=== PATIENT | female | born 1935 | race Caucasian/White ===

== ENCOUNTER 2016-11-16 21:13 | Inpatient (IN) ==
[2016-11-16] MEDS ORDERED: ASPIRIN PO STA (21:28)
--- NOTE | 2016-11-16 21:49 | ED EKG INTERP ---
This chart was entered by Joon Ellis Scribe, acting as scribe for Mario Garcia MD. EKG Interpretation - EKG Time of EKG reading by physician:: 21:23 EKG Read and Signed by:: Mario Garcia EKG Interpretation (*Must complete 3 of following elements*): Abnormal ( Possible left atrial enlargement; Nonspecific ST and T wave abnormality) Rate: 53 Rhythm: Sinus bradycardia This chart was documented by the indicated scribe, (Joon Ellis Scribe) and accurately reflects the services I performed and decisions made by meParesh Kevin F., MD, as attested by the provider's signature.
[2016-11-16] MEDS ORDERED: ZOFRAN IV ONE ×2 (21:50→22:39)
[2016-11-16] MEDS ORDERED: MORPHINE IV ONE (21:50)
[2016-11-16 22:23] LABS: MANUAL DIFF NEEDED? NO
[2016-11-16 22:27] LABS: BASO% 0.1 % (0.0-0.8); EOS# 0.12 X1000 (0.0-0.7); EOS% 0.9 % (0.0-10.0); HEMATOCRIT 37.1 % (37.0-47.0); HEMOGLOBIN 12.9 g/dL (12.0-16.0); IMM GRAN# 0.04 X1000 (0.0-0.04); IMM GRAN% 0.3 % (0.0-0.5); LYMPH# 2.74 X1000 (1.2-3.4); MCH 32.3 PG (27-31); MCHC 34.8 g/dL (33-37); MCV 92.8 FL (81-99); MONO# 0.68 X1000 (0.11-0.59); MPV 8.8 FL (7.4-10.4); NEUT% 73.7 % (42.2-75.2); PLT 397 X1000 (130-400)
[2016-11-16 22:34] LABS: INR 0.99; PROTIME 10.4 Seconds (9.2-11.7); PTT 24.6 Seconds (22.0-36.0)
[2016-11-16] MEDS ORDERED: DILAUDID IV ONE (22:38)
[2016-11-16 22:44] LABS: ALBUMIN 4.2 g/dL (3.5-5.0); CALCIUM 9.3 mg/dL (8.8-10.2); MAGNESIUM 1.7 mg/dL (1.5-2.7); POTASSIUM 3.8 mmol/L (3.5-5.1); TOTAL BILIRUBIN 0.94 mg/dL (0.20-1.00); TOTAL PROTEIN 7.2 g/dL (6.3-8.3)
--- NOTE | 2016-11-16 23:52 | PROVIDER DOCUMENTATION ---
This chart was entered by Joon Ellis Scribe, acting as scribe for Mario Garcia MD. HPI-Abdominal Pain/GI Problem - General Chief Complaint: Chest Pain Stated Complaint: CP Time Seen by Provider: 11/16/16 21:28 Source: patient Allergies/Adverse Reactions: Patient Allergies Allergy/AdvReac Type Severity Reaction Status Date / Time Sulfa (Sulfonamide Allergy HIVES Verified 11/16/16 21:44 Antibiotics) - History of Present Illness-ABD Nature of Presenting Problems: Pt is a 81 yof who presents to ER with CC of sharp epigastric pain that radiates straight through to her back that started today. Pt reports diaphoresis and nausea without vomiting when pain started, but denies any SOB/ diarrhea/constipation. Pt states that her pain is worse when lying flat and improved when bending over. Abdominal Pain Onset Location: reports: epigastric Pain Radiation: reports: back Quality of Pain: reports: sharp Severity in ED: reports: moderate Onset/Duration: reports: this afternoon Timing: reports: still present Associated Symptoms: reports: back/neck pain, diaphoresis, nausea. denies: anxiety, arm pain, chest pain, constipation, diarrhea, fever/chills, loss of appetite, muscle aches, shortness of breath, vomiting Last BM: unsure Dark Stools Present?: reports: none noticed Rectal Bleeding: reports: none Rectal Pain: reports: none Emesis Description: reports: none Review of Systems - Adult - REVIEW OF SYSTEMS - ADULT Constitutional: denies: chills, fever, fatique, night sweats, weight gain, weight loss Eyes: reports: no symptoms reported Ears, Nose, Mouth & Throat: reports: no symptoms reported Cardiovascular: denies: chest pain, irregular heart rate, palpitations, poor circulation, syncope Respiratory: denies: cough, dyspnea on exertion, shortness of breath, wheezing Gastrointestinal: reports: abdominal pain (epigastric), nausea. denies: hematemesis, constipation, diarrhea, difficulty swallowing, frequent heartburn, poor appetite, rectal bleeding, vomiting Genitourinary: reports: no symptoms reported Musculoskeletal: reports: no symptoms reported Integumentary: reports: other (diaphoresis). denies: hives, hair loss, itching , skin sores/ulcer, skin thickening Neurological: reports: no symptoms reported Psychiatric: reports: no symptoms reported Endocrine: reports: no symptoms reported Hematologic/Lymphatic: reports: no symptoms reported Allergic/Immunologic: reports: no symptoms reported All Other Systems: Reviewed and Negative Past History - Adult - PAST MEDICAL HISTORY-ADULT Review of Records: reports: Nursing Assessment Review, Medications Reviewed - IMMUNIZATION STATUS Childhood Immunizations: See Nurse Assessment Flu Vaccine: See Nurse Assessment Physical Exam-General - PHYSICAL EXAM-ADULT Initial Vital Signs Reviewed: Yes - CONSTITUTIONAL General Appearance: appears well, alert, mild distress - RESPIRATORY Respiratory: chest non-tender, lungs clear, normal breath sounds, no pleuratic chest pain, no respiratory distress, no accessory muscle use. negative: respiratory distress, decreased breath sounds, accessory muscle use, wheezing - CARDIOVASCULAR Cardiovascular: normal peripheral pulses, regular rate, rhythm. negative: bradycardia, tachycardia, irregularly irregular - GASTROINTESTINAL (ABDOMEN) Abdominal Exam: normal bowel sounds, soft, no organomegaly, no pulsatile mass, tenderness (tenderness to epigastric/RUQ on palpation), Pedraza's sign (Positive) . negative: non tender - MUSCULOSKELETAL Back Exam: no CVA tenderness, no vertebral tenderness. negative: CVA tenderness , vertebral tenderness - PSYCHIATRIC Psych/Mental Status: normal mood/affect, normal thought content, normal thought process, oriented x 3 Progress - PLAN OF CARE/RESULTS Progress/Plan/Lab Results: Vital Signs - 8 hr 11/16/16 21:28 Temperature 97.8 F Pulse Rate 48 L Respiratory Rate 18 Blood Pressure 168/63 O2 Sat by Pulse Oximetry 99 Orders Category Date Time Status Cardiac Monitoring DIRECTED Care 11/16/16 21:28 Active Saline Loc NOW Care 11/16/16 21:28 Active CHEST-2 VIEWS [RAD] Stat Exams 11/16/16 21:28 Ordered US GB < RUQ (LIMITED) [US] Stat Exams 11/16/16 21:50 Ordered CBC WITH ELECTRONIC DIFF [HEME] Stat Lab 11/16/16 21:28 Uncollected CK PROFILE [SP CHEM] Stat Lab 11/16/16 21:28 Uncollected COMPREHENSIVE METABOLIC PANEL [CHEM] Stat Lab 11/16/16 21:28 Uncollected D-DIMER [CHEM] Stat Lab 11/16/16 21:28 Uncollected LIPASE [CHEM] Stat Lab 11/16/16 21:49 Uncollected MAGNESIUM [CHEM] Stat Lab 11/16/16 21:28 Uncollected PRO B-NATRIURETIC PEPTIDE Stat Lab 11/16/16 21:28 Uncollected PROTIME WITH INR [COAG] Stat Lab 11/16/16 21:28 Uncollected PTT [COAG] Stat Lab 11/16/16 21:28 Uncollected TROPONIN T Stat Lab 11/16/16 21:28 Uncollected Aspirin Med 11/16/16 21:28 Discontinued 325 mg PO STAT STA Morphine Med 11/16/16 21:50 Once 4 mg IV NOW ONE Ondansetron [Zofran] Med 11/16/16 21:50 Once 4 mg IV NOW ONE EKG [EKG] Stat Ther 11/16/16 21:19 Ordered Result Diagrams: 11/16/16 21:53 11/16/16 21:53 - REASSESSMENT Reassessment #1 Time Reassessed: 23:51 (pt responded well to 1 mg dilaudid and not declines further analgesics) Status: improving Departure - Departure Date of Disposition Decision: 11/16/16 Time of Disposition Decision: 23:51 DIAGNOSIS: Pancreatitis Qualifiers: Chronicity: acute Pancreatitis type: unspecified pancreatitis type Acute pancreatitis complication: unspecified Qualified Code(s): K85.90 - Acute pancreatitis without necrosis or infection, unspecified Disposition: ADMITTED INPATIENT 09 Certified Medical Emergency: Emergent Condition: Good Referrals and Follow-Ups: Cuate Griffin MD [Primary Care Provider] - - Critical Care Note This patient required my direct & personal management of CC.: No This chart was documented by the indicated scribe, (Joon Ellis Scribe) and accurately reflects the services I performed and decisions made by me, Mario Llanos MD, as attested by the provider's signature.
[2016-11-17] MEDS ORDERED: LR 500 ML IV ONE (03:19)
[2016-11-17] MEDS ORDERED: ZOFRAN IV PRN (03:20)
[2016-11-17] MEDS ORDERED: PROTONIX IV SCH (03:30)
[2016-11-17] MEDS: SODIUM CHLORIDE 0.9% INJ SCH (03:42)
[2016-11-17] MEDS: MORPHINE IV PRN ×3 (03:42→19:48)
[2016-11-17] MEDS: LR 1,000 ML IV SCH ×3 (03:43→09:05)
--- NOTE | 2016-11-17 04:15 | HISTORY AND PHYSICAL ---
CHIEF COMPLAINT: Abdominal pain. HISTORY OF PRESENT ILLNESS: This is an 81-year-old female with a history of hypertension who is followed by Dr. Griffin, who comes in with a 24 hour history of abdominal pain, nausea, and vomiting. She describes the pain as sharp, in her epigastrium, also radiating to her back, diaphoresis, nausea. She has not had previous episodes of pancreatitis. Pain is worse when lying flat. She denies any alcohol use. No gallbladder problems. Clinically, in the ER, she was felt to have pancreatitis and she was admitted with treatment. However, there was some concern over possible pancreatic mass versus cyst. Final read is pending at this point. PAST MEDICAL HISTORY: Hypertension alone. PAST SURGICAL HISTORY: She has had a hysterectomy and then I think she had a small bowel obstruction associated with lysis of adhesions. FAMILY HISTORY: Reviewed and noncontributory. SOCIAL HISTORY: No tobacco. No ethanol. ALLERGIES: Sulfa. MEDICATIONS: I do not have the full list. REVIEW OF SYSTEMS: Otherwise negative. She does report about a 10 pound weight loss over the last 3 months. PHYSICAL EXAMINATION: VITAL SIGNS: Blood pressure 158/65, heart rate 63, respiratory rate 15, temperature 97.8 degrees, 95% on 2 L. GENERALLY: Well-developed female, appears in no acute distress. HEAD: Normocephalic, atraumatic. EYES: Pupils equal, round, reactive to light. Extraocular movements were intact. EAR/NOSE/THROAT: Showed moist mucous membranes. NECK: Supple. CARDIOVASCULAR: Regular rate and rhythm. No murmurs, gallops, or rubs. PULMONARY: Bilateral breath sounds clear to auscultation. GI: Soft, nondistended. Bowel sounds were positive. She did have tenderness to palpation but no rebound or guarding. EXTREMITIES: No clubbing or cyanosis. LYMPHATICS: No peripheral edema. NEUROLOGICAL: Examination was nonfocal. LABORATORY DATA: White count was minimally elevated at 13,000. D-dimer was mildly elevated. Sodium 131. Lipase greater than 3000. PROBLEM LIST/ASSESSMENT: This is an 81-year-old female with hypertension, presenting with acute pancreatitis. 1. Acute pancreatitis. At this point, there is no evidence of biliary issues. Although she does have a distended gallbladder, there are no stones. I do not believe she is an alcoholic, surreptitious or otherwise, so it is unclear where her pancreatitis is coming from. We will need to review her home medications to evaluate for any potential offenders. We will check triglycerides, immunoglobulin levels, and I will get a gastroenterology consult because there is concern over a possible mass but the preliminary read does not show any mass so we will have to see how that works. 2. Hypertension. We will continue to monitor and treat accordingly. 3. Hyponatremia, likely related to nausea and vomiting. We will continue hydration and follow closely. Check her TSH levels. cc: MD Cuate Santana MD
--- NOTE | 2016-11-17 05:28 | EKG Report ---
Test Performed on : 11/16/2016 9:23:00 PM Test Reason : CP Blood Pressure : / mmHG Vent. Rate : 053 BPM Atrial Rate : 053 BPM P-R Int : 158 ms QRS Dur : 084 ms QT Int : 466 ms P-R-T Axes : 053 045 070 degrees QTc Int : 437 ms Sinus bradycardia. Possible Left atrial enlargement Nonspecific ST and T wave abnormality Abnormal ECG No previous ECGs available Unconfirmed Result
[2016-11-17 06:34] LABS: ALBUMIN 4.2 g/dL (3.5-5.0); CALCIUM 9.6 mg/dL (8.8-10.2); POTASSIUM 4.8 mmol/L (3.5-5.1); TOTAL BILIRUBIN 0.67 mg/dL (0.20-1.00); TOTAL PROTEIN 6.5 g/dL (6.3-8.3)
--- NOTE | 2016-11-17 07:20 | Diag Imaging Result Doc PS360 ---
EXAM: CHEST-2 VIEWS HISTORY: CP TECHNIQUE: PA and lateral chest COMMENT: There are no previous studies available for comparison. There is atelectasis or fibrosis in the left costophrenic angle and over the left hemidiaphragm in the lower lobe. There are granulomata in the upper lobes. The heart size is slightly enlarged. IMPRESSION: Borderline cardiomegaly and basilar atelectasis versus fibrosis on the left. Electronically signed by Juan Frank 11/17/2016 7:18 AM
--- NOTE | 2016-11-17 07:27 | Diag Imaging Result Doc PS360 ---
EXAM: US GB < RUQ (LIMITED) HISTORY: ruq/back pain TECHNIQUE: Right upper quadrant ultrasound, transabdominal COMMENT: The pancreas is normal in appearance. The aorta and inferior vena cava are normal where there are visible. Detail in the liver is suboptimal due to the patient's body habitus. There is antegrade flow in the portal vein. There is no evidence of biliary dilatation the common bile duct measuring 3 mm. The gallbladder is clear and nontender. Liver is somewhat inhomogeneous and hyperechoic. The right kidney is atrophic measuring 8.7 x 4.4 x 4.2 cm. There is no evidence of hydronephrosis or mass. IMPRESSION: 1. Hepatic steatosis. 2. Right renal atrophy. Electronically signed by Juan Frank 11/17/2016 7:25 AM
--- NOTE | 2016-11-17 07:39 | Diag Imaging Result Doc PS360 ---
EXAM: ABDOMEN/PELVIS W/O CONTRAST INDICATION: marked elevated lipase TECHNIQUE: COMPARISON: None. FINDINGS: There is subsegmental atelectasis and/or scarring at the lung bases. There are calcified granulomata in the spleen. The pancreas is grossly unremarkable by unenhanced CT. The gallbladder is distended. There is nonspecific periportal edema throughout the liver. There is trace fluid tracking around the liver. There is a 2.4 cm left adrenal adenoma. There are no renal or ureteral stones and there is no evidence of acute obstructive uropathy. There are couple cyst density renal foci bilaterally. The urinary bladder is grossly unremarkable. There has been a prior hysterectomy. There is uncomplicated sigmoid colonic diverticulosis. There is aortoiliac atherosclerotic calcification with no evidence of aneurysm. The remainder of the GI tract is grossly unremarkable. There are degenerative changes throughout the spine, and there is a chronic appearing compression deformity at L1. IMPRESSION: 1.Nonspecific intrahepatic periportal edema. 2.Trace fluid tracking around the liver. 3.Gallbladder distention. 4.No CT evidence of acute pancreatitis on this study. 5.Other incidental/nonacute findings detailed above. Electronically signed by Kee Man 11/17/2016 7:37 AM
[2016-11-17 09:46] LABS: HEMOGLOBIN A1C 5.2 % (4.8-6.0)
--- NOTE | 2016-11-17 14:30 | Diag Imaging Result Doc PS360 ---
EXAM: MRI ABDOMEN W/WO CONTRAST INDICATION: Pancreatitis TECHNIQUE: COMPARISON: CT dated 11/16/2016. No prior MRI abdomen is available for comparison. FINDINGS: There is signal dropout involving the left adrenal mass seen on CT on out of phase imaging, which is highly consistent with an adenoma. The gallbladder is distended similar to the recent CT. There is no definite gallbladder wall thickening. There is probably trace fluid at the periphery of the gallbladder. The common bile duct is not dilated. There is no discrete ductal filling defect or stricture. There appear to be a few tiny filling defects layering dependently in the gallbladder lumen (see image 26, series 5) that appear to represent tiny gallstones. Like the previous CT, periportal edema is noted, which is nonspecific. The pancreas is grossly unremarkable with no definite inflammatory change and no discrete mass. There are multiple small renal cysts bilaterally. The spleen is grossly unremarkable. The abdominal segments of the GI tract are grossly unremarkable. IMPRESSION: 1.Distended gallbladder similar to the recent CT. 2.A few tiny gallstones layering dependently in the gallbladder lumen. 3.No biliary ductal dilatation is appreciated. 4.Trace fluid tracking around the gallbladder that is nonspecific. 5.Nonspecific periportal edema that is similar to the recent CT. 6.Other incidental/nonacute findings detailed above. Electronically signed by Kee Man 11/17/2016 2:28 PM
--- NOTE | 2016-11-17 15:11 | Diag Imaging Result Doc PS360 ---
EXAM: HIDA SCAN W/ EJECTION FRACTION INDICATION: Eval GB function TECHNIQUE: 6.2 mCi of technetium 99 Choletec was administered intravenously and images were obtained usual fashion post administration. COMPARISON: None. FINDINGS: There was normal immediate hepatocellular uptake after injection. Activity is seen in the gallbladder beginning at 22 minutes post administration. No activity is seen in small bowel at 47 minutes post administration. At 1 hour 30 minutes post administration, 8 ounces of liquid fatty meal was administered orally. At this point, small bowel activity was noted. The calculated gallbladder ejection fraction is 17%. IMPRESSION: Depressed gallbladder ejection fraction suggesting possible hypokinesis. Electronically signed by Kee Man 11/17/2016 3:08 PM
--- NOTE | 2016-11-18 04:03 | CONSULTATION ---
DATE OF CONSULTATION: 11/17/2016 ATTENDING PHYSICIAN: Dr. Ng. PRIMARY CARE DOCTOR: Dr. Cuate Griffin. REASON FOR CONSULTATION: Pancreatitis. HISTORY OF PRESENT ILLNESS: Ms. Meier is an 81-year-old female who was admitted last night for acute onset of abdominal pain in the epigastric region radiating to the back , along with nausea and vomiting over the last 24 hours. On admission, she was found to have an elevated lipase of more than 3,000. Her gallbladder was also noted to be distended. She denies any prior history of pancreatitis or gallbladder or liver problems. She denies any family history of any pancreatic problems. She denies any history of alcohol. She denies any history of hyperlipidemia. She denies taking any new medications or herbal supplements. Since admission she has been treated with IV fluids. Her lipase is trending down. She complains of nausea and abdominal bloating this morning. She denies any vomiting or passing blood in the stools. PAST MEDICAL HISTORY: Hypertension. PAST SURGERY HISTORY: 1. Hysterectomy. 2. Lysis of adhesions for bowel obstruction. FAMILY HISTORY: Noncontributory. SOCIAL HISTORY: She has a very supportive family at bedside. She has 2 sisters at bedside. Denies any alcohol, tobacco, or illicit drugs. She used to drink many years ago but quit. ALLERGIES: Sulfa. MEDICATIONS: In the hospital were reviewed. REVIEW OF SYSTEMS: Denies any fevers, rigors, or chills chest pain, shortness of breath, dyspnea. Denies any genitourinary complaints. Has history of arthritis. Denies any history of vomiting or passing blood in the stools. PHYSICAL EXAMINATION: Vital signs: Temperature is 97.6, pulse rate of 59, respiratory rate 14 blood pressure 148/47, saturating 98% on room air. Body weight of 138 pounds 3.2 ounces. BMI of 21.6 kg/m2. General Appearance: Moderately built, moderately nourished, lying in bed, in no acute distress. HEENT: Mild pallor. No icterus. Pupils equal, react to light. Neck: Supple; Chest: Decreased breath sounds at the bases; Cardiovascular: Regular rhythm. No murmur. Abdomen: Discomfort in the epigastric region. Bowel sounds are hypoactive. No rebound. No guarding. Extremities: No cyanosis, clubbing, edema. Neurologic: Alert, awake, oriented. LABS: Her hemoglobin and hematocrit are 12.9 and 37.1, white count 13.7, platelet count of 397,000. INR 0.9, PT of 10.4, PTT of 24.6. Sodium 134, potassium 4.8, chloride 96, bicarb 20, anion gap of 18, BUN of 18, creatinine 1.1, glucose of 155, HB A1c 5.2, calcium 9.6, total bilirubin is 0.67, AST 26, ALT 13, alkaline phosphatase is 42, total protein 6.5 , albumin of 4.2. Triglycerides 34. Amylase of 1,100. Lipase of 1,706 which has come down for more than 3,000. CEA is 3.3. She had an abdominal and pelvic CT scan done on 11/16/2016 which showed nonspecific intrahepatic periportal edema. Trace fluid tracking around the liver. Gallbladder distention. No CT evidence of acute pancreatitis in the study. Aortoiliac atherosclerotic calcification. No evidence of aneurysm. Degenerative changes of the spine. Chronic appearing compression deformity L1. A 2.4 cm left adrenal adenoma. Abdominal ultrasound done yesterday showed hepatic steatosis, right renal atrophy. No evidence of hydronephrosis. No evidence of biliary dilation. The common bile duct measuring 3 mm. Pancreas normal in appearance. IMPRESSION AND PLAN: 1. Pancreatitis, unclear etiology. Could be gallbladder sludge. Her home medicines include losartan which could have a remote chance of causing pancreatitis. 2. Distended gallbladder. 3. Lumbar degenerative arthritis changes. 4. Leukocytosis secondary to above. RECOMMENDATIONS: 1. We will continue with IV fluids at 125 ml per hour . Will keep on IV pain control, IV antiemetics, and IV Protonix. Will follow up on the pancreatic enzymes. We will schedule for MRCP to evaluate the pancreas duct and common bile duct. We will also obtain a HIDA scan to evaluate the gallbladder function as she could have a biliary pancreatitis. 2. We will hold her losartan for now. We will also await the results of CA-19- 9 and IgG 4 levels. 3. Will keep her on NPO for now until the above studies are done and once her pain control is achieved we can start her on a clear liquid diet, maybe later today. 4. Further recommendations pending the hospital course. cc: MD Felicita Meléndez MD Kenneth E. Mashburn, MD [facility]
--- NOTE | 2016-11-18 05:34 | CONSULTATION ---
DATE OF CONSULTATION: 11/17/2016 REQUESTING PHYSICIAN: Dr. Santo. REASON FOR CONSULTATION: Concerning possible biliary pancreatitis. HISTORY OF PRESENT ILLNESS: An 81-year-old female with a history of hypertension, who initially presented to the ER with a 24-hour history of abdominal pain. She was worked up in the emergency department, found to have pancreatitis. The workup also included an MRI and a HIDA scan. The MRI did not show any anatomic abnormalities, but did show that she had some gallstones. She does not have a significant alcohol history to suggest that this is alcohol pancreatitis, with a running diagnosis she has had biliary pancreatitis. The patient is clinically doing better, with improved abdominal pain. Her laboratories are still elevated, except for a bilirubin that is essentially normal. I was asked to evaluate for opinion. PAST MEDICAL HISTORY: Includes hypertension. PAST SURGICAL HISTORY: Includes hysterectomy, previous lysis of adhesions. ALLERGIES: Sulfa. HOME MEDICATIONS: Reviewed. SOCIAL HISTORY: No tobacco or alcohol. FAMILY HISTORY: Reviewed with patient, noncontributory. REVIEW OF SYSTEMS: A full 10-point review of systems obtained, negative except as specified in HPI. PHYSICAL EXAMINATION: Vital Signs: Patient is currently afebrile. Her vital signs are stable. General: No acute distress. Well-nourished, well-developed female, looks stated age. HEENT: Normocephalic, atraumatic. Pupils equal, round, and react to light. Mucous membranes moist. Oropharynx benign. Neck: Supple. Trachea midline. Cardiovascular: Regular rate and rhythm. Lungs: Grossly clear. Abdomen: Soft, nondistended. Bowel sounds auscultated. She done does not have any significant tenderness at this point, but did report to epigastric and right upper quadrant pain previously. Extremities: Moves all extremities. Neurologic: Grossly intact. Skin: No signs of jaundice. Vascular: All extremities perfused. LABORATORY STUDIES: Reviewed. Of note, patient's lipase is 1706, and her amylase is 1100. CT scan and imaging reviewed, and noted above. ASSESSMENT AND PLAN: An 81-year-old female with hypertension, now with acute pancreatitis. 1. Hypertension. At this time, being managed by the hospitalist service. 2. Acute pancreatitis. At this time, there is potential that she does have biliary pancreatitis. No other etiology has been discovered. Given the fact that she has stones, may need to consider removing her gallbladder, but will need her to improve from her pancreatitis a little bit more. May consider doing this 2 days from now. cc: John Raymond MD MTDD
[2016-11-18 05:45] LABS: HEMATOCRIT 31.7 % (37.0-47.0); HEMOGLOBIN 10.7 g/dL (12.0-16.0); MCH 32.6 PG (27-31); MCHC 33.8 g/dL (33-37); MCV 96.6 FL (81-99); MPV 8.5 FL (7.4-10.4); RBC 3.28 XMIL (4.2-5.4)
[2016-11-18 05:48] LABS: ALBUMIN 3.2 g/dL (3.5-5.0); CALCIUM 8.7 mg/dL (8.8-10.2); POTASSIUM 4.2 mmol/L (3.5-5.1); TOTAL BILIRUBIN 0.7 mg/dL (0.20-1.00); TOTAL PROTEIN 5.7 g/dL (6.3-8.3)
[2016-11-18 05:52] LABS: HDL 63 mg/dL (45-65); LDL 59 mg/dL; TRIGLYCERIDES 49 mg/dL (35-135); VLDL 10 mg/dL
[2016-11-18] MEDS: PROTONIX IV SCH (06:07)
[2016-11-18] MEDS: SODIUM CHLORIDE 0.9% INJ SCH (06:08)
[2016-11-18] MEDS: LR 1,000 ML IV SCH ×3 (06:08→14:34)
--- NOTE | 2016-11-18 10:37 | PROGRESS NOTE ---
DATE: 11/18/2016 SUBJECTIVE: The patient doing okay. Says her pain is improving. OBJECTIVE: Vital Signs: Patient is currently afebrile. Her vital signs are stable. General exam: No acute distress. HEENT: Normocephalic, atraumatic. Pupils equal, round, reactive to light. Mucous membranes moist. Oropharynx benign. Neck: Supple. Trachea midline. Cardiovascular: Regular rate and rhythm. Lungs: Grossly clear. Abdomen: Soft, nondistended. Some mild tenderness to palpation in epigastric and right upper quadrant, but no peritoneal signs. Extremities: Moves all extremities. Neurologic: Grossly intact. Skin: No signs of jaundice. Vascular: All extremities perfused. LABORATORY: White blood cell count 8, hematocrit 31. CMP reviewed. Bilirubin still low. Alkaline phosphatase is still low. ASSESSMENT/PLAN: An 81-year-old, female, with possible biliary pancreatitis. 1. Possible biliary pancreatitis. At this time, we will tentatively schedule for tomorrow for laparoscopic cholecystectomy. Will do a cholangiogram at that time. No other etiology for pancreatitis has been discovered, so we will plan on surgical intervention. cc: John Raymond MD
[2016-11-18] MEDS: MORPHINE IV PRN ×2 (12:51→19:22)
[2016-11-18] MEDS ORDERED: NORVASC PO ONE (15:30)
--- NOTE | 2016-11-18 15:47 | PROGRESS NOTE ---
DATE: 11/18/2016 SUBJECTIVE: The patient is resting comfortably. She has no complaints at this time. She is scheduled to undergo a cholecystectomy tomorrow. OBJECTIVE: Vital Signs: Temperature 98 degrees, blood pressure 171/52, heart rate 65, respirations 20 and O2 saturations 96% on room air. General: This is an elderly female, lying in bed, in no acute distress. Head is normocephalic, atraumatic. Heart: S1, S2. Normal. Regular rate and rhythm. Lungs: Clear to auscultation bilaterally. No wheezes. No rales. No rhonchi. Abdomen is positive. Bowel sounds soft, nontender, nondistended. Extremities: No edema, no cyanosis, No calf tenderness. Neurologic: The patient is alert oriented x3. LABORATORY DATA: Sodium 135, potassium 4.2, chloride 101, CO2 of 26. BUN 16, creatinine 0.9, glucose 95. Albumin 3.2. ASSESSMENT AND PLAN: 1. Biliary pancreatitis. The patient is scheduled to undergo a cholecystectomy tomorrow. 2. Hypertension. We will restart the patient's Norvasc. 3. Osteoporosis, aware. 4. Gastrointestinal prophylaxis. Continue on IV Protonix. 5. Deep vein thrombosis prophylaxis. Continue with SCDs. cc: Felicita Ng MD
[2016-11-18] MEDS: NS 1,000 ML IV SCH (15:58)
[2016-11-19] MEDS: NS 1,000 ML IV SCH (05:09)
[2016-11-19 05:38] LABS: HEMATOCRIT 33.8 % (37.0-47.0); HEMOGLOBIN 11.3 g/dL (12.0-16.0); MCH 32.3 PG (27-31); MCHC 33.4 g/dL (33-37); MCV 96.6 FL (81-99); MPV 8.7 FL (7.4-10.4); RBC 3.5 XMIL (4.2-5.4)
[2016-11-19 05:52] LABS: AGAP 12; BUN 12 mg/dL (8-22); CALCIUM 8.8 mg/dL (8.8-10.2); CHLORIDE 100 mmol/L (98-107); COSMO 272; LIPASE 46 U/L (13-60); POTASSIUM 4.1 mmol/L (3.5-5.1); SODIUM 136 mmol/L (136-145); TCO2 24 mmol/L (25-35)
[2016-11-19] MEDS ORDERED: ZOFRAN ONE (05:52)
[2016-11-19] MEDS ORDERED: QUELICIN (DOSE) ONE (05:52)
[2016-11-19] MEDS ORDERED: XYLOCAINE-MPF 2% ONE (05:52)
[2016-11-19] MEDS ORDERED: ROBINUL ONE ×2 (05:53)
[2016-11-19] MEDS ORDERED: STERILE WATER INJ. ONE (05:54)
[2016-11-19] MEDS ORDERED: NORCURON ONE (05:54)
[2016-11-19] MEDS ORDERED: DIPRIVAN 1% ONE (05:55)
[2016-11-19] MEDS ORDERED: FENTANYL ONE (05:59)
[2016-11-19] MEDS ORDERED: SENSORCAINE 0.25%/EPI 1:200,000 ONE (06:21)
[2016-11-19] MEDS ORDERED: SODIUM CHLORIDE 0.9% ONE (06:21)
[2016-11-19] MEDS ORDERED: XYLOCAINE 1% ONE (06:21)
[2016-11-19] MEDS ORDERED: LR 1,000 ML ONE (06:22)
[2016-11-19] MEDS: PROTONIX IV SCH (06:31)
[2016-11-19] MEDS ORDERED: MEFOXIN 2 GM/NS 2 GM/50 ML IVPB ONE (06:35)
--- NOTE | 2016-11-19 06:43 | PROGRESS NOTE ---
DATE: 11/19/2016 SUBJECTIVE: Patient doing well. Her pain is essentially resolved. OBJECTIVE: Vital Signs: Patient is currently afebrile. Her vital signs are stable. General Examination: No acute distress. HEENT: Normocephalic and atraumatic. Pupils equal, round, react to light. Mucous membranes moist. Oropharynx benign. Neck: Supple. Trachea midline. Cardiovascular: Regular rate and rhythm. Lungs: Grossly clear. Abdomen: Soft, nontender, nondistended. Extremities: Moves all extremities. Neurologic: Grossly intact. Skin: No signs of jaundice. Vascular: All extremities perfused. Laboratory: Reviewed. Her lipase is essentially normal. ASSESSMENT/PLAN: An 81-year-old, female with likely biliary pancreatitis. Biliary pancreatitis. At this time, given her improvement, we will plan for surgical intervention today. The risks, benefits, and alternatives were discussed. Consent was signed. cc: John Raymond MD
[2016-11-19] MEDS ORDERED: HYGROTON PO SCH (09:00)
[2016-11-19] MEDS ORDERED: TENORMIN PO SCH (09:00)
[2016-11-19] MEDS ORDERED: NORVASC PO SCH ×2 (09:00)
[2016-11-19] MEDS ORDERED: COZAAR PO SCH (09:00)
[2016-11-19] MEDS ORDERED: MOBIC PO SCH (09:00)
--- NOTE | 2016-11-19 09:38 | OPERATIVE NOTE ---
PROCEDURE DATE: 11/19/2016 PREOPERATIVE DIAGNOSIS: Biliary pancreatitis. POSTOPERATIVE DIAGNOSES: 1. Biliary pancreatitis. 2. Abnormal appearing liver. PROCEDURE: 1. Laparoscopic cholecystectomy. 2. Laparoscopic liver wedge biopsy. SURGEON: John Raymond MD. GASOLINE SERVICE ATTENDANT: None. ANESTHESIA: General endotracheal. INTRAOPERATIVE FINDINGS: As above. COMPLICATIONS: None at the time of dictation. ESTIMATED BLOOD LOSS: 10 mL. SPECIMENS REMOVED: 1. Gallbladder. 2. Liver biopsy. BRIEF HISTORY: The patient is an 81-year-old, female presenting with biliary pancreatitis. As such, the patient was admitted for a laparoscopic cholecystectomy. The risks, benefits, and alternatives were discussed. All questions were answered. DESCRIPTION OF PROCEDURE: After informed consent was obtained, the patient was brought to the operative theatre, transferred to the operating table, and placed in a supine position. General endotracheal anesthesia was then performed without complication. A formal time-out was then performed, confirming patient, date, and procedure. All were in agreement. At that time, attention was given to the abdomen. An infraumbilical incision was made through which using Optiview technique, we were able to insert an 11 mm trocar, connected to insufflation. Pneumoperitoneum was achieved. Under direct visualization, we placed 3 more trocars, all 5 mm, 1 in the subxiphoid and 2 in the right upper quadrant. We then reexamined where our initial 11 mm trocar had gone in. She had dense adhesions but we did not cause any bowel injury that we could see. We then elevated the gallbladder and retracted it cephalad. We then dissected out the cystic duct and cystic artery to achieve the critical view of safety. We initially attempted to do a cholangiogram. We placed a clip on the cystic duct, although there was an artery that was intimately attached to this that had significant bleeding noted. This hindered our visualization. The cystic duct appeared normal. Therefore, given the bleeding, we elected to not perform a cholangiogram. We doubly clipped and ligated the cystic duct and cystic artery. We then dissected the gallbladder off the gallbladder fossa, placed it into an endobag, and brought it out through the infraumbilical incision. We then reexamined the liver. There did appear to be some chronic changes to it. Given this, we elected do a liver biopsy. We performed this with a wedge with scissors with cautery on and took a segment of liver near the gallbladder fossa. We maintained hemostasis with electrocautery. We re-examined the clips. There was no active bleeding. No drainage of bile. We waited for several minutes to watch this area and again no active bleeding or drainage of bile. We irrigated the abdomen copiously until the suction fluid was clear. We then removed all trocars, disconnected insufflation. Pneumoperitoneum was released. We closed the infraumbilical incision with a 0 Vicryl [id number] stitch. We elected to do this because we could not visualize for the S[place]. Therefore, we felt that we could potentially injure the bowel but we closed it with a [id number] with good results. We irrigated all incisions and closed them with 4-0 Monocryl. The patient tolerated the procedure well and was transferred to the recovery room in stable condition. cc: John Raymond MD
[2016-11-19] MEDS: NORCO-10 PO PRN ×2 (11:56→17:01)
--- NOTE | 2016-11-19 13:56 | PROGRESS NOTE ---
DATE: 11/19/2016 SUBJECTIVE: The patient is resting comfortably in bed. No acute events noted overnight. OBJECTIVE: Vital Signs: Temperature 98.3 degrees, blood pressure 160/52, heart rate 43 respirations 18, O2 saturations 94% on 2 L nasal cannula. General: This is an elderly female, lying in bed, in no acute distress. Head: Normocephalic, atraumatic. Heart: S1, S2. Normal. Bradycardic. Lungs: Clear to auscultation bilaterally. Abdomen: Positive bowel sounds. Soft, nontender, nondistended. Extremities: No edema. No cyanosis. Neuro: The patient is alert and oriented x3. LABS: Hemoglobin 11, hematocrit 33, platelets 274,000. White blood cell count 6.5. Sodium 136, potassium 4.1, chloride 100, CO2 24, BUN 12, creatinine 0.8, glucose 100. ASSESSMENT AND PLAN: 1. Biliary pancreatitis. The patient is scheduled to undergo a laparoscopic cholecystectomy today. 2. Asymptomatic bradycardia. We will monitor the patient closely. We will hold the atenolol due to the patient's bradycardia. 3. Hypertension. Continue on the current cardiac medications. 4. Deep vein thrombosis prophylaxis. Continue with SCDs. cc: Felicita Ng MD
[2016-11-19 15:07] VITALS: BP 159/56
--- NOTE | 2016-11-19 16:25 | PROGRESS NOTE ---
DATE: 11/19/2016 SUBJECTIVE: Patient currently resting in bed. Her daughter is at bedtime. She complains of soreness of the right upper quadrant since surgery. She has been burping since surgery. She has not moved her bowels yet. She is on a heart healthy diet. She is tolerating them well. She denies any fevers, rigors, chills. Vitals: Temperature of 97.7 degrees, pulse rate of 48, respiratory rate of 14, blood pressure 115/52, saturating 90% on room air. General Appearance: Moderately nourished, lying in bed, in no acute. HEENT: Mild pallor. No icterus. Neck: Supple. Abdomen: Mild soreness in the right upper quadrant. Bowel sounds are hypoactive. Extremities: No cyanosis, clubbing. Neurologic: She is alert, awake, oriented. LAB: Hemoglobin and hematocrit 11.3 and 33.8, white count 6.5, platelet count of 274,000. MCV of 96.6. Sodium 132, potassium 4.1, chloride 100, bicarb 20, anion gap of 12, BUN of 12, creatinine 0.8, glucose of 100, calcium is 8.8. Lipase is now normal at 46. CA-19-9 is 31 , which is normal. IgG subtypes, IgG 4 level was 22.2. Her triglycerides 49. IMPRESSION AND PLAN: 1. Biliary pancreatitis which is now resolved. 2. Status post laparoscopic cholecystectomy by Dr. Raymond on 11/19/2016. At that time a wedge biopsy of liver was also obtained. Follow the results. 3. For GI prophylaxis with PPIs. 4. Mild anemia. We will continue watch. 5. Can initiate the bowel regimen with Deisy-Colace once daily. 6. Above plan discussed with the patient and family. cc: MD Felicita Meléndez MD Matthew L. Figh, MD Kenneth E. Mashburn, MD MTDD
[2016-11-19] MEDS ORDERED: PERICOLACE PO SCH (21:00)
[2016-11-19] MEDS ORDERED: PERIDEX MT SCH (21:00)
[2016-11-23] MEDS ORDERED: FOSAMAX PO SCH (06:30)
--- NOTE | 2016-11-23 07:23 | DISCHARGE SUMMARY ---
ADMISSION DATE: 11/17/2016 DISCHARGE DATE: 11/19/2016 PRIMARY CARE PHYSICIAN: Dr. Cuate Griffin. FINAL DISCHARGE DIAGNOSES: 1. Biliary pancreatitis. 2. Status post laparoscopic cholecystectomy with liver wedge biopsy. 3. Hypertension. 4. Osteoporosis. CONSULTATIONS REQUESTED DURING THIS HOSPITAL STAY: 1. GI consultation with Dr. Santo. 2. General surgery consultation with Dr. Raymond. PROCEDURES PERFORMED DURING THIS HOSPITAL STAY: 1. Laparoscopic cholecystectomy performed on 11/19/2016. 2. Laparoscopic liver wedge biopsy performed on 11/19/2016. HOSPITAL COURSE: Ms. Meier is an 81-year-old female with a history of hypertension and osteoporosis who presented to the ER with a chief complaint of abdominal pain. On admission, the patient was noted to have a lipase of greater than 3000. The patient was admitted to the hospitalist service. A CT of the abdomen and pelvis and an abdominal ultrasound were performed. The CT revealed gallbladder distention and some fluid tracking around the liver. The abdominal ultrasound revealed hepatic steatosis with right renal atrophy. The patient was made n.p.o. and provided with p.r.n. antiemetics and pain medication. GI as well as general surgery were consulted. It was recommended by the general surgeon that the patient undergo gallbladder removal. Once the patient's pancreatitis improved, the patient was taken to the OR on 11/19/2016 in which a laparoscopic cholecystectomy and liver biopsy were performed. The patient did well postoperatively and was able to tolerate a diet. The patient was ultimately cleared for discharge home on 11/19/2016. DISCHARGE MEDICATIONS: 1. Meloxicam 7.5 mg p.o. daily. 2. Losartan 100 mg by mouth daily. 3. Norvasc 5 mg p.o. daily. 4. Alendronate 70 mg by mouth once a week. 5. Atenolol/chlorthalidone daily. DISCHARGE DIET: Low cholesterol, low sodium diet. ACTIVITY: As tolerated. FOLLOWUP INSTRUCTIONS: The patient will need to follow up with Dr. Raymond as instructed by his clinic. The patient will need to follow up with Dr. Griffin in 2 weeks. cc: MD Cuate Carter MD
--- NOTE | 2016-11-23 11:37 | PROGRESS NOTE ---
DATE: 11/18/2016 SUBJECTIVE: The patient is resting. She is feeling better. The intense pain is gone but she still has the epigastric discomfort. She has been followed by Dr. Raymond and is scheduled for a cholecystectomy tomorrow. OBJECTIVE: Vital Signs: Temp 98 degrees, blood pressure 170/50, heart rate 65, respirations 20, O2 saturation 96%. General: Elderly lady, laying in bed, in mild distress. HEENT: No scleral icterus that I could tell. Conjunctival pallor present. Neck: Supple. Trachea midline. Heart: Normal first and second heart sounds. Lungs: Decreased breath sounds on the left side. Abdomen: Tender in the epigastrium and left upper quadrant but no guarding, rebound, or rigidity. Bowel sounds present and hypoactive. Extremities: Normal. LABORATORY DATA: Electrolytes are normal. IMPRESSIONS: 1. Biliary pancreatitis. She has gallbladder sludge and stones. There is no other reason for her pancreatitis. It is most likely biliary pancreatitis. Scheduled for cholecystectomy tomorrow. 2. Hypertension. Patient is started on Norvasc. 3. Osteoporosis. 4. Gastrointestinal prophylaxis, on Protonix. 5. Deep vein thrombosis prophylaxis. Continue with the SCDs. PLAN: Will follow after cholecystectomy if there is any retained stone in the common bile duct. Currently, the labs do not support that and patient is feeling better. She probably passed a stone. cc: Millicent Bess MD
== END 2016-11-19 17:03 | disposition home health service (06) ==
LOC: ED 21:13 → SUATTDRO 11-17 02:31 → 4N 11-17 02:31
PROVIDERS: ATTEND Internal Medicine

== ENCOUNTER 2016-11-24 11:54 | Inpatient (IN) ==
[2016-11-24] MEDS ORDERED: NS 1,000 ML IV PRN (12:00)
--- NOTE | 2016-11-24 12:17 | Diag Imaging Result Doc PS360 ---
EXAM: CHEST-PORTABLE HISTORY: stroke like symptoms TECHNIQUE: Verbal AP upright COMPARISON: 11/16/2016 FINDINGS: The lungs are well expanded. The heart is not enlarged. Minimal vascular prominence. No consolidation. No pleural effusions identified. There are scattered granuloma. IMPRESSION: Minimal pulmonary edema. Electronically signed by Cecil Amaya 11/24/2016 12:14 PM
--- NOTE | 2016-11-24 12:24 | EKG Report ---
Test Performed on : 11/24/2016 12:14:00 PM Test Reason : Blood Pressure : / mmHG Vent. Rate : 068 BPM Atrial Rate : 068 BPM P-R Int : 138 ms QRS Dur : 082 ms QT Int : 414 ms P-R-T Axes : 019 016 040 degrees QTc Int : 440 ms Normal sinus rhythm. with sinus arrhythmia. ST \T\ T wave abnormality, consider anterior ischemia Abnormal ECG When compared with ECG of 16-NOV-2016 21:23, Nonspecific T wave abnormality now evident in Inferior leads Unconfirmed Result
--- NOTE | 2016-11-24 12:59 | Diag Imaging Result Doc PS360 ---
EXAM: HEAD W/O CONTRAST HISTORY: stroke like symptoms TECHNIQUE: COMPARISON: None. FINDINGS: No parenchymal hemorrhage. No epidural or subdural hematoma. No subarachnoid hemorrhage. No mass identified on this noncontrasted exam. No hydrocephalus. Mild atrophy. Mild microvascular ischemic changes. No sinus opacification. IMPRESSION: No hemorrhage. There is mild atrophy with mild microvascular ischemic changes. Electronically signed by Cecil Amaya 11/24/2016 12:57 PM
[2016-11-24 13:36] LABS: INR 0.97; PROTIME 10.2 Seconds (9.2-11.7); PTT 28.9 Seconds (22.0-36.0)
[2016-11-24 13:40] LABS: BASO% 0.2 % (0.0-0.8); EOS# 0.07 X1000 (0.0-0.7); EOS% 0.7 % (0.0-10.0); HEMATOCRIT 34.4 % (37.0-47.0); HEMOGLOBIN 12.2 g/dL (12.0-16.0); IMM GRAN# 0.04 X1000 (0.0-0.04); IMM GRAN% 0.4 % (0.0-0.5); LYMPH# 0.59 X1000 (1.2-3.4); LYMPH% 5.6 % (20.5-51.1); MANUAL DIFF NEEDED? NO; MCH 31.9 PG (27-31); MCHC 35.5 g/dL (33-37); MCV 90.1 FL (81-99); MONO# 0.69 X1000 (0.11-0.59); MONO% 6.6 % (1.7-9.3); MPV 8.8 FL (7.4-10.4); NEUT% 86.5 % (42.2-75.2); PLT 473 X1000 (130-400); RBC 3.82 XMIL (4.2-5.4)
[2016-11-24 14:00] LABS: ALBUMIN 3.4 g/dL (3.5-5.0); CALCIUM 9.3 mg/dL (8.8-10.2); POTASSIUM 3.5 mmol/L (3.5-5.1); TOTAL BILIRUBIN 2.45 mg/dL (0.20-1.00); TOTAL PROTEIN 7.1 g/dL (6.3-8.3)
--- NOTE | 2016-11-24 14:10 | PROVIDER DOCUMENTATION ---
This chart was entered by Fabiano Bazan Scribe, acting as scribe for Junito Brooks MD. HPI-Neurological Disorder - General Stated Complaint: unresponsive Time Seen by Provider: 11/24/16 11:54 Source: EMS Unable to obtain history due to:: altered Allergies/Adverse Reactions: Patient Allergies Allergy/AdvReac Type Severity Reaction Status Date / Time Sulfa (Sulfonamide Allergy HIVES Verified 11/16/16 21:44 Antibiotics) Home Medications: Home Medication List Medication Instructions Recorded Confirmed Last Taken Type Alendronate Sodium 70 mg PO DIRECTED 11/17/16 11/17/16 11/16/16 History Amlodipine Besylate 5 mg PO DAILY 11/17/16 11/17/16 11/16/16 History Atenolol/Chlorthalidone 1 tab PO DAILY 11/17/16 11/17/16 11/16/16 History [Atenolol-Chlorthalidone 50-25] Losartan Potassium 100 mg PO DAILY 11/17/16 11/17/16 11/16/16 History Meloxicam 7.5 mg PO DAILY 11/17/16 11/17/16 11/16/16 History - History of Present Illness-Neuro Nature of Presenting Problem: patient is a 81 y/o F that presents to the ER via EMS after call went out due to patient being unresponsive. Family found patient, with her eyes closed. Fire was at scene and found patient to be 83% on RA, she was given a NRB with flush o2. EMS arrived and patient was in chair and not responding. She did have a pulse. En route, she opened her eyes and knew her name but was disoriented. She was recently d/c from hospital a few days ago for pancreatitis and pancreatic mass. Family reported patient was jerking no seizure history Severity: reports: moderate Onset/Duration: reports: abrupt, this morning Timing: reports: improving Context: reports: found unresponsive by family (didnt' know if she had a pulse) . denies: impaired speech, paresthesia, facial droop Character of Altered Mental Status: reports: unresponsive Any recent trauma/injury?: reports: none New weakness or altered sensation location:: reports: none Cognitive Baseline: alert but confused Gait Baseline: walks without assistance Associated Symptoms: denies: dizziness, neck/back pain, fever/chills, nausea, vomiting, weakness Similar Symptoms Previously?: No Recently seen or treated by another doctor?: Yes Review of Systems - Adult - REVIEW OF SYSTEMS - ADULT ROS:: limited per condition Constitutional: denies: chills, fever Eyes: reports: no symptoms reported Ears, Nose, Mouth & Throat: denies: ear discharge, ear pain, sinus problem, throat pain Cardiovascular: denies: chest pain, palpitations Respiratory: reports: no symptoms reported Gastrointestinal: denies: abdominal pain, diarrhea, nausea, vomiting Genitourinary: reports: no symptoms reported Musculoskeletal: reports: no symptoms reported Integumentary: reports: no symptoms reported Neurological: reports: other (decreased responsiveness). denies: dizziness/ vertigo, headache/migraines Psychiatric: reports: no symptoms reported Endocrine: reports: no symptoms reported Hematologic/Lymphatic: reports: no symptoms reported Allergic/Immunologic: reports: no symptoms reported All Other Systems: Reviewed and Negative Past History - Adult - PAST MEDICAL HISTORY-ADULT Review of Records: reports: Old Records Reviewed, Nursing Assessment Review, Medications Reviewed Cardiovascular: reports: HTN Gastrointestinal: reports: pancreatitis, other (pancreatic mass) Musculoskeletal: reports: arthritis - IMMUNIZATION STATUS Childhood Immunizations: See Nurse Assessment Flu Vaccine: See Nurse Assessment - SOCIAL HISTORY Smoking: quit greater than 1 year, cigar Living Situation: family Physical Exam- Neurological - Physical Exam-Neuro Exam Limited by: pt condition Initial Vital Signs Reviewed: Yes General Appearance: alert, mild distress, moderate distress Eye Exam: bilateral eye: normal inspection, PERRL HENMT: normocephalic/atraumatic, moist mucous membranes, normal ENT inspection Head Injury: no evidence of injury. negative: contusions, ecchymosis, lacerations Neck: full range of motion, normal inspection Respiratory: lungs clear, normal breath sounds, no respiratory distress, no accessory muscle use Cardiovascular: regular rate, rhythm, no edema, no murmur Abdominal Exam: normal bowel sounds, non tender, soft, no organomegaly, no pulsatile mass Extremity: normal range of motion, normal inspection, no pedal edema, normal capillary refill, pelvis stable engineering vice president Exam: normal hearing, normal speech, PERRL Motor/Sensory: no motor deficit, no sensory deficit Neurologic: engineering vice president II-XII nml as tested, no motor/sensory deficits. negative: facial droop, focal weakness, motor weakness, sensory deficit Integumentary: normal color, warm/dry Psych/Mental Status: normal mood/affect, other (disoriented to time and place but not person). negative: anxious - Glascow Coma Scale Best Eye Response: (4) open spontaneously Best Verbal Response: (4) confused conversation Best Motor Response: (6) obeys commands Total Glascow Score: 14 Progress - PLAN OF CARE/RESULTS Progress/Plan/Lab Results: Vital Signs - 8 hr 11/24/16 12:02 11/24/16 13:19 Pulse Rate 69 64 Respiratory Rate 16 14 Blood Pressure 162/69 161/60 O2 Sat by Pulse Oximetry 99 94 L Laboratory Results - last 24 hr 11/24/16 11/24/16 11/24/16 12:17 13:11 13:11 WBC 10.45 RBC 3.82 L Hgb 12.2 Hct 34.4 L MCV 90.1 MCH 31.9 H MCHC 35.5 RDW Std Deviation 12.6 Plt Count 473 H MPV 8.8 Immature Gran % (Auto) 0.4 Neut % (Auto) 86.5 H Lymph % (Auto) 5.6 L [place] % (Auto) 6.6 Eos % (Auto) 0.7 Baso % (Auto) 0.2 Immature Gran # (Auto) 0.04 Neut # (Auto) 9.04 H Lymph # (Auto) 0.59 L [place] # (Auto) 0.69 H Eos # (Auto) 0.07 Baso # (Auto) 0.02 PT INR PTT (Actin FS) Sodium 125 L Potassium 3.5 Chloride 87 L Carbon Dioxide 21 L Anion Gap 17 BUN 24 H Creatinine 1.4 H Estimated GFR/1.73 m2 36 BUN/Creatinine Ratio 17 Glucose 148 H POC Glucose 144 H Calculated Osmolality 258 Calcium 9.3 Total Bilirubin 2.45 H AST 23 ALT 21 Alkaline Phosphatase 173 H Troponin T Total Protein 7.1 Albumin 3.4 L Globulin 3.7 Albumin/Globulin Ratio 0.9 11/24/16 11/24/16 13:11 13:11 WBC RBC Hgb Hct MCV MCH MCHC RDW Std Deviation Plt Count MPV Immature Gran % (Auto) Neut % (Auto) Lymph % (Auto) [place] % (Auto) Eos % (Auto) Baso % (Auto) Immature Gran # (Auto) Neut # (Auto) Lymph # (Auto) [place] # (Auto) Eos # (Auto) Baso # (Auto) PT 10.2 INR 0.97 PTT (Actin FS) 28.9 Sodium Potassium Chloride Carbon Dioxide Anion Gap BUN Creatinine Estimated GFR/1.73 m2 BUN/Creatinine Ratio Glucose POC Glucose Calculated Osmolality Calcium Total Bilirubin AST ALT Alkaline Phosphatase Troponin T < 0.010 Total Protein Albumin Globulin Albumin/Globulin Ratio Orders Category Date Time Status Cardiac Monitoring DIRECTED Care 11/24/16 12:00 Active Finger Stick Blood Sugar (ED) DIRECTED Care 11/24/16 12:00 Active Misc. NRSG Communication Order DIRECTED Care 11/24/16 12:00 Active Saline Loc NOW Care 11/24/16 12:00 Active Straight Catheterization ORDERED Care 11/24/16 14:01 Active CHEST-PORTABLE [RAD] Stat Exams 11/24/16 12:00 Completed HEAD W/O CONTRAST [CT] Stat Exams 11/24/16 12:00 Completed CBC WITH ELECTRONIC DIFF [HEME] Stat Lab 11/24/16 13:11 Completed COMPREHENSIVE METABOLIC PANEL [CHEM] Stat Lab 11/24/16 13:11 Completed PROTIME WITH INR [COAG] Stat Lab 11/24/16 13:11 Completed PTT [COAG] Stat Lab 11/24/16 13:11 Completed TROPONIN T Stat Lab 11/24/16 13:11 Completed URINALYSIS W/POSS RFLX CULT-1 [URINALYSIS] Stat Lab 11/24/16 12:00 Uncollected URINE DRUG SCREEN Stat Lab 11/24/16 12:00 Uncollected 0.9% Sodium Chloride Inj [Ns] 1,000 ml Med 11/24/16 12:00 Active IV 75 mls/hr EKG [EKG] Stat Ther 11/24/16 12:00 Ordered 1404-hospitalist paged for admission Result Diagrams: 11/24/16 13:11 11/24/16 13:11 - EKG 1 Time of EKG reading by physician:: 12:14 EKG Read and Signed by:: Junito Brooks EKG Interpretation (*Must complete 3 of following elements*): Abnormal Rate: 68 Rhythm: NSR [place]: normal QRS: normal [place] Interval: normal ST Wave: non-specific ST changes - CT/MRI 1 CT Study: Head Impression: Abnormal CT Results: no hemorrhage, mild atrophy with microvascular ischemic changes - CONSULTS/PCP/HOSPITALIST Notification #1 *Consult/PCP/Hospitalist*: Ofe PARDO with Hospitalist Time Discussed: 14:07 Reason/Comments: accepted Consult Disposition: Admit Departure - Departure Date of Disposition Decision: 11/24/16 Time of Disposition Decision: 14:03 DIAGNOSIS: Elevated bilirubin, Seizure-like activity Altered mental status Qualifiers: Altered mental status type: unspecified Qualified Code(s): R41.82 - Altered mental status, unspecified Disposition: ADMITTED INPATIENT 09 Certified Medical Emergency: Emergent Condition: Stable Referrals and Follow-Ups: Cuate Griffin MD [Primary Care Provider] - - Critical Care Note This patient required my direct & personal management of CC.: No This chart was documented by the indicated scribe, (Fabiano Bazan, Scribe) and accurately reflects the services I performed and decisions made by me, Junito Brooks MD, as attested by the provider's signature.
[2016-11-24 14:24] LABS: URINE CULTURE NEEDED? NO; URINE MICRO REVIEW NEEDED? NO; URINE SOURCE CATH
[2016-11-24 14:29] LABS: BILIRUBIN URINE NEGATIVE (NEGATIVE); BLOOD URINE TRACE (NEGATIVE); COLOR YELLOW; GLUCOSE URINE NEGATIVE (NEGATIVE); LEUKOCYTES URINE NEGATIVE (NEGATIVE); NITRITE URINE NEGATIVE (NEGATIVE); PROTEIN URINE 50 mg/dL (NEGATIVE); SP GRAVITY URINE 1.015; TURBIDITY URINE CLEAR (CLEAR); UROBILINOGEN URINE 4 mg/dL (NORMAL)
[2016-11-24 14:30] LABS: UR EPITHELIAL CELLS <10 /HPF (<10); URINE BACTERIA NEGATIVE /HPF; URINE RBC <10 /HPF (<10); URINE WBC <10 /HPF (<10)
[2016-11-24 14:47] LABS: UR AMPHETAMINES QUAL NONE DETECTED (NONE DETECT); UR BARBITUATES QUAL NONE DETECTED (NONE DETECT); UR BENZODIAZEPIN QUAL NONE DETECTED (NONE DETECT); UR CANNABINOIDS QUAL NONE DETECTED (NONE DETECT); UR COCAINE QUAL NONE DETECTED (NONE DETECT); UR METHADONE QUAL NONE DETECTED (NONE DETECT); UR OPIATES QUAL PRESUMPTIVE POSITIVE (NONE DETECT); UR OXYCODONE QUAL NONE DETECTED (NONE DETECT); UR PCP QUAL NONE DETECTED (NONE DETECT)
--- NOTE | 2016-11-24 15:39 | Diag Imaging Result Doc PS360 ---
ABDOMEN/PELVIS W/O CONTRAST - 11/24/2016 INDICATION: fever, recent surgery TECHNIQUE: A CT dose reduction protocol was used. COMPARISON: 11/16/2016 FINDINGS: There are cholecystectomy clips. No evidence of biliary dilation. There is trace perihepatic and pelvic free fluid. No radiodense renal stones. No hydronephrosis or hydroureter. There is moderately severe constipation. Otherwise no bowel obstruction or inflammation. There is significant diverticulosis of the sigmoid colon. Urinary bladder and rectum are normal. Stable benign fatty nodule of the left adrenal gland. There are some nonspecific peripancreatic edema that has worsened since prior. This may be the same process as the perihepatic fluid. There is severe COPD in the lung bases. Trace right pleural effusion. No infiltrates. IMPRESSION: 1. Trace perihepatic and peripancreatic free fluid. 2. Moderately severe constipation. 3. COPD. 4. No specific complication visible from the recent cholecystectomy. Electronically signed by Michele Bundy 11/24/2016 3:36 PM
[2016-11-24] MEDS ORDERED: TYLENOL PO PRN (16:47)
[2016-11-24] MEDS ORDERED: ZOFRAN IV PRN (16:47)
[2016-11-24] MEDS ORDERED: FLEET MINERAL OIL ENEMA PR ONE (16:48)
[2016-11-24] MEDS: MIRALAX PO SCH (18:08)
[2016-11-24 18:14] LABS: CALCIUM 9.3 mg/dL (8.8-10.2); POTASSIUM 3.7 mmol/L (3.5-5.1)
[2016-11-24] MEDS ORDERED: TYLENOL WITH CODEINE #3 PO PRN (19:02)
--- NOTE | 2016-11-24 19:37 | HISTORY AND PHYSICAL ---
CHIEF COMPLAINT: Was possible seizure. BRIEFLY: This is an 81-year-old female, she was just discharged from the hospital a couple days ago after an episode of gallstone pancreatitis. She had a laparoscopic cholecystectomy. She had recovered. Reportedly today she was with her younger sister and I think daughter. She had an episode while she was in the couch where hands were drawn up and she was rocking back and forth, not quite what I would describe as a generalized tonic colonic seizure but she was unresponsive for several minutes. Ambulance was called. I think she came to while she was in transit to the hospital. She has no previous history of seizure disorder. She has not really been on any medications that I think would have contributed to seizures except for she has been on Ultram for osteoarthritis now I think about it but she was not discharged on those medications. At this point, she is completely back to normal. Reportedly she had some fevers but I do not think that was documented here. PAST MEDICAL HISTORY: Hypertension. I think that is really about it and the recent gallbladder issues. PAST SURGICAL HISTORY: Hysterectomy, small bowel obstruction and lysis of adhesions, laparoscopic cholecystectomy. FAMILY HISTORY: Reviewed, noncontributory. SOCIAL HISTORY: She denies tobacco or ethanol. She lives alone. Is usually very high functional. ALLERGIES: Sulfa. MEDICATIONS: She currently is on amlodipine 5 daily, atenolol/chlorthalidone 50/25 daily, losartan 100 daily, meloxicam 7.5 daily, reportedly also Ultram. REVIEW OF SYSTEMS: Otherwise negative times a 10 point review of systems. PHYSICAL EXAMINATION: VITAL SIGNS: Blood pressure 159/63, heart rate of 58, respiratory rate of 18, temperature 98.1 degrees, 96% on 2 L. CARDIOVASCULAR: Regular rate and rhythm. PULMONARY: Bilateral breath sounds. Clear to auscultation. GI: Soft, nontender, nondistended. Bowel sounds are positive. EXTREMITIES: No clubbing or cyanosis. LYMPHATICS: No peripheral edema. NEUROLOGICAL: Nonfocal. LABORATORY DATA: Her sodium is 125, her BUN and creatinine were 23 and 1.3 which is up for her, total bilirubin was up to 2.45. Urine was really unremarkable. UDS positive for opiates which she had been on previously. Head CT was negative for acute pathology. Chest x-ray looked okay. Abdominal pelvic CT just showed constipation, looks like according this it says minimal pulmonary edema. PROBLEM LIST: 1. Hyponatremia with symptoms. We will gently hydrate and follow her sodium levels closely. Could be due to the chlorthalidone. We will hold that and continue normal saline. Check urine sodium, urine osmolarity. 2. Severe constipation likely related to her multiple medical issues, pain medication #1 and recent surgery. She is responding to bowel regimen so we will continue that for right now. 3. Acute kidney injury. Will continue her regular medications and follow. 4. Recent gallbladder pancreatitis. Clinically again she looks pretty good so I think I am not really going to plan to do anything else from that standpoint. We will follow closely. DISPOSITION: Pending her clinical course. cc: Cuate Griffin MD
[2016-11-24] MEDS: LACTULOSE PO SCH (20:40)
[2016-11-25 03:58] LABS: CALCIUM 8.3 mg/dL (8.8-10.2); POTASSIUM 3.1 mmol/L (3.5-5.1)
[2016-11-25 05:19] LABS: HEMATOCRIT 31.9 % (37.0-47.0); HEMOGLOBIN 11.2 g/dL (12.0-16.0); MCH 31.7 PG (27-31); MCHC 35.1 g/dL (33-37); MCV 90.4 FL (81-99); MPV 8.7 FL (7.4-10.4); RBC 3.53 XMIL (4.2-5.4)
[2016-11-25 05:36] LABS: AMYLASE 29 U/L (20-200); LIPASE 19 U/L (13-60)
[2016-11-25 05:37] LABS: CALCIUM 8.7 mg/dL (8.8-10.2); POTASSIUM 3.2 mmol/L (3.5-5.1)
[2016-11-25 05:41] LABS: ALBUMIN 3.1 g/dL (3.5-5.0); DIRECT BILIRUBIN 1.1 mg/dL (0.00-0.20); TOTAL BILIRUBIN 1.79 mg/dL (0.20-1.00); TOTAL PROTEIN 5.9 g/dL (6.3-8.3)
[2016-11-25] MEDS: MOBIC PO SCH (09:23)
[2016-11-25] MEDS: NORVASC PO SCH (09:23)
[2016-11-25] MEDS: MIRALAX PO SCH (09:24)
[2016-11-25] MEDS: LACTULOSE PO SCH (16:24)
[2016-11-25] MEDS ORDERED: POTASSIUM CHLORIDE 20% LIQUID PO ONE (19:27)
--- NOTE | 2016-11-25 19:48 | PROGRESS NOTE ---
DATE: 11/25/2016 SUBJECTIVE: This is an 81-year-old, discharged from the hospital a couple of days ago with gallstone pancreatitis. She had laparoscopic cholecystectomy. She had recovered poorly, today brought in by her sister. She had an episode where she was on the cough, hands were drawn up and she was rocking back and forth, not quite a tonic-clonic seizure, but she was shaking and seemed to pass out. The last she remembers, she was talking on the couch and then she showed up at the emergency room. This lasted about an hour or hour and a half apparently, kind of out of it. She has never had a seizure before. She was not on any medications. She complained of a little constipation, that is about it. History of hypertension. Recent gallbladder issue, status post hysterectomy, small bowel obstruction, lysis of adhesions, laparoscopic cholecystectomy. So the patient was admitted with hyponatremia. I think her sodium was 125, which is mild. It could be from the chlorthalidone. Put her on some normal saline. She appeared to be a little bit dry. For severe constipation, she was put on lactulose. Apparently she has been going to the bathroom several times. Acute kidney injury, she presented, lab unremarkable other than hyponatremia. Creatinine was 1.3. Recently 1.2. OBJECTIVE: General: At present time she is comfortable. No focal neurologic deficits. She is alert and oriented x3. She has been able to ambulate. No trouble with tremor. Vital signs: Temperature 98.3 degrees, pulse 64, respirations 16, blood pressure 155/54. Lungs: Are clear in all lung camacho. Cardiovascular: Regular rhythm and rate without murmur or S3. Abdomen: Soft. Skin: Warm and dry. LABORATORY AND IMAGING: White count 7880, hematocrit is 31, platelet count 449,000. Sodium has come up from 125 to 128. Potassium 3.7, it went down to 3.1. Magnesium was not checked, so we will check that in the morning. Her TSH was 0.63, so we will check a T4 and TSH. We will check B12 and folate. CT of her head without contrast, mild atrophy, mild microscopic ischemic changes. Chest x-ray, mild pulmonary edema. Abdominal and pelvic CT, trace perihepatic and peripancreatic free fluid. Moderately severe constipation, COPD, no specific complication visible from recent cholecystectomy. ASSESSMENT AND PLAN: Review of orders, I do not see any change. I will ask Neurology to evaluate. It does not sound like a seizure. Continue to watch and monitor. I will check magnesium, T4, TSH, B12 and folate tomorrow and check another EKG in the morning. cc: Nimesh Blanca MD
[2016-11-26 05:43] LABS: FREE T4 1.29 ng/dL (0.93-1.70)
[2016-11-26 06:23] LABS: ALBUMIN 2.8 g/dL (3.5-5.0); POTASSIUM 4.3 mmol/L (3.5-5.1); TOTAL BILIRUBIN 1.39 mg/dL (0.20-1.00); TOTAL PROTEIN 6.1 g/dL (6.3-8.3)
--- NOTE | 2016-11-26 07:35 | PROGRESS NOTE ---
DATE: 11/26/2016 SUBJECTIVE: Ms. Meier had a good night, slept well. No complaints. No pain. No focal neurologic changes. No feelings of presyncope or tremor. OBJECTIVE: Vital Signs: Temperature 98.3 degrees, pulse 62, respirations 16, blood pressure 170/58. Respiratory: Lungs are clear in all lung camacho. Cardiovascular: Regular rhythm and rate without murmur or S3. Abdomen: Soft. Skin: Warm and dry. Urine Output: Is 1300 mL. LABORATORY DATA: White count 7880, hematocrit 31, platelet count 441,000. Sodium 140, potassium 4.3, chloride 95, BUN 19, creatinine 1.1. Direct bilirubin was 1.39, dropped from 1.79. Alkaline phosphatase 187 to 215. B12 was 1000. Magnesium was 2. T4 1.29, TSH 0.87. ASSESSMENT AND PLAN: She had what sounds like a syncopal spell. I am not exactly sure. It really does not fit any specific category. The family felt like she had some shaking consistent with a seizure. She has not had any more events. Her laboratories are pretty unremarkable. She neurologically appears normal. I was going to have Neurology evaluate. If she does okay today walking around and eating, I plan to let her go home. She had an abdominal and pelvic CT done on 11/24/2016 when she came in. She had trace perihepatic and peripancreatic free fluid, moderate to severe constipation, which is resolved, and some chronic obstructive pulmonary disease. She is status post cholecystectomy. The CT of her head without contrast was unremarkable. No hemorrhage. There is mild atrophy and mild microvascular ischemic changes. Review of orders, I do not see any change. She is getting fluids, normal saline at 75 mL an hour. cc: Nimesh Blanca MD
--- NOTE | 2016-11-26 07:52 | EKG Report ---
Test Performed on : 11/26/2016 07:11:19 AM Test Reason : CP Blood Pressure : / mmHG Vent. Rate : 055 BPM Atrial Rate : 055 BPM P-R Int : 152 ms QRS Dur : 084 ms QT Int : 448 ms P-R-T Axes : 056 037 034 degrees QTc Int : 428 ms Sinus bradycardia. with sinus arrhythmia. ST \T\ T wave abnormality, consider anterior ischemia Abnormal ECG When compared with ECG of 24-NOV-2016 12:14, No significant change was found Confirmed by Blaine Harrison DO ([id number]) on 11/28/2016 1:08:48 PM
[2016-11-26] MEDS: NORVASC PO SCH (09:19)
[2016-11-26] MEDS: MOBIC PO SCH (09:19)
[2016-11-26] MEDS: MIRALAX PO SCH (09:19)
--- NOTE | 2016-11-26 15:04 | CONSULTATION ---
DATE OF CONSULTATION: 11/26/2016 HISTORY OF PRESENT ILLNESS: Ms. Meier is 81 years old and she had an episode 2 days ago raising question of seizure or other neurologic event. History from the patient is that 2 days ago she was seated, feeling well, comfortable, no symptoms whatsoever, visiting with sisters. She next realized she was "downstairs in the ambulance." According to family, patient suddenly became unresponsive with legs extended, each arm flexed at the elbow, wrists across her chest, breathing loudly and rhythmically and that persisted for several minutes, possibly 20-30 minutes according to one witness. There was no tongue biting, lip biting, incontinence. There was not a clear postictal state. She did not report headache, generalized soreness, other specific symptoms after the episode. She remembers being transported to the emergency room. She has not had a definite similar episode. There is history that 6 months ago she collapsed in the shower unwitnessed and family believes she "passed out". There is no other history of syncope, collapse, unexplained memory gap or other neurologic event. She says she has never had stroke, previous seizure, serious head injury, other neurologic event. She has not used ethanol in many years. She added tramadol a few weeks ago for knee pain and believes that has provided some benefit. She was not taking benzodiazepines. I do not see anything else on her medicine list that likely would be associated with seizure or encephalopathy. Vital signs record shows blood pressures initially 160s systolic, later 130s to 140s, and now back to 160s today. Heart rate was in the 60s initially, recorded as low as 51. She has been afebrile. Lab work showed mild anemia, sodium 125 recovered to 130, mildly elevated BUN and creatinine which are improved now, mildly elevated blood sugars. Other than the sodium, the metabolic lab does not show anything likely to be associated with seizure. Review of available records on the computer shows the sodium level 125 is the lowest recorded in this computer. Drug screen was positive for opiates, which may be consistent with tramadol, but I am not certain about that. Noncontrast CT of the head on admission 2 days ago showed mild atrophy and typical microvascular ischemic change, but nothing focal or acute and no bleeding. On exam, Ms. Meier is awake, alert, attentive, appropriate, cheerful. She is completely oriented to all parameters on bedside testing. She was able to discuss some recent news with accuracy. Speech is not dysarthric. Language function is intact on brief bedside testing. Remote memory is good. Head and neck are unremarkable. Visual camacho are full tested grossly. She has good extraocular movements. Facial motility is symmetric. Tongue is midline. She did well on [id number] testing. I did not test her gait. She has good power in the limbs. She splints at her left shoulder slightly and otherwise had normal use in the arms. Reflexes are absent at the ankles, 1+ at the wrists bilaterally. Plantar response is silent bilaterally. IMPRESSION: Episode of altered awareness, transient neurologic event, uncertain explanation. Overall, features seem more likely not epileptic seizure. Most importantly, there appears to have been no postictal state following a 20 minute period of unresponsiveness with rigidity and limb shaking. We can plan EEG electively, but I do not think that would pattern changer now. I am not certain that the episode six months ago was related in any way to the recent event. We discussed potential risk for seizure with tramadol and I suggested that she consider managing her pain with a different drug. I encouraged her to be careful with activities, to sit down quickly if she feels odd, and to keep followup with her primary physician. I would not add medicine for seizure management at this point. Thanks for asking me to see Ms. Meier. cc: MD KRYS Burden III
--- NOTE | 2016-11-26 17:29 | DISCHARGE SUMMARY ---
ADMISSION DATE: 11/24/2016 DISCHARGE DATE: 11/26/2016 HISTORY AND HOSPITAL COURSE: She came in with questionable seizure. She had a spell that seemed to involve small consciousness and some shaking. She was discharged from the hospital couple of days prior to this for gallstone pancreatitis. She had a laparoscopic cholecystectomy, which she had recovered pretty well. Was eating. Reported the day of admission by young sister or I think her daughter, that she had an episode where she was on the cough, her hands drawn up and she was rocking back and forth. Not quite described as a tonic-clonic seizure, but she was unresponsive for several minutes. Ambulance was called. She came to while in transit to the hospital. Has had no previous history of seizure disorder or syncope. They reviewed the medications. No medications that could have contributed, except she was taking Ultram for osteoarthritis and was discharged on those medications. She had no further events. She had no altered mental status. She was strong. No focal deficits. She was eating well. Monitor showed sinus rhythm. Blood pressure well controlled. No episodes of fever. No myoclonus. Review of all of her labs including thyroid, B12 and folate all looked good. Her head CT without contrast was unremarkable, mildly atrophic with mild micro ischemic changes. She had abdominal pelvic CT done on 11/24, trace perihepatic and peripancreatic free fluid. Moderate severe constipation, COPD. No specific complications visible from recent cholecystectomy. EKG done on admission. Followup EKG was completely unremarkable. She had some T-wave inversion, V1 through V3, which is very nonspecific, but normal sinus rhythm, so felt she could be discharged home. DISCHARGE MEDICATIONS: We will resume her home medications. Amlodipine 5 mg a day, atenolol, chlorthalidone 50/25 one a day. Losartan 100 mg a day. Meloxicam 7.5 mg a day. Will follow up with her primary care, that is Dr. Cuate Griffin. Review of lab unremarkable. We did supplement a little bit of potassium. B12 looked good. cc: Nimesh Blanca MD
[2016-11-26 17:55] VITALS: BP 169/49
== END 2016-11-26 18:07 | disposition home health service (06) ==
LOC: SUPCPDRO → ED 11:54 → EDIPHOLD 15:03 → SUATTDRO 15:03 → 3S 15:38
PROVIDERS: ATTEND Emergency Medicine